=== PATIENT | male | born 1930 | race Two or more races ===

== ENCOUNTER 2019-05-23 04:25 | Inpatient (IN) | payer MEDICAID, MEDICARE ==
[~2019-05-23] VITALS: Ht 172.7 cm; Wt 60.3 kg
--- NOTE | 2019-05-23 04:50 | NUR ---
PT ANY FROM FOUR SEASONS C/C "NOSEBLEED OUT OF NOWHERE, WONT STOP" -GLF. -DIZZY AOX3-4. VSS. PT SOUTH KOREAN SPEAKING ONLY. PT ON MONITOR IN BED 4. NOSE CLIP IN PLACE. L NOSTRIL BLEEDING NOTED. NO R SIDED NOSTRIL BLEED. WILL CONTINUE TO MONITOR.
--- NOTE | 2019-05-23 05:02 | NUR ---
RHINO ROCKET IN L NOSTRIL
[2019-05-23] MEDS ORDERED: ZOLPIDEM TARTRATE 5 MG TABLET PO PRN (05:30)
[2019-05-23] MEDS ORDERED: Z GUARD REMEDY 2 OZ OINT TP PRN (05:30)
[2019-05-23] MEDS ORDERED: ONDANSETRON HCL/PF 4 MG/2 ML VIAL IVP PRN (05:30)
[2019-05-23] MEDS ORDERED: ACETAMINOPHEN 325 MG TABLET PO PRN (05:30)
[2019-05-23] MEDS ORDERED: HYDROCODONE/APAP 5/325MG 1 EACH TABLET PO PRN (05:30)
[2019-05-23] MEDS ORDERED: MAG HYDROX/AL HYDROX/SIMETH 30 ML UDC PO PRN (05:30)
--- NOTE | 2019-05-23 05:36 | NUR ---
FAMILY AT BEDSIDE.
--- NOTE | 2019-05-23 05:43 | NUR ---
BLOOD DRAWN AND GIVEN TO LAB
[2019-05-23 05:45] LABS: BASOPHILS % (AUTO) 0.4 % (0.0-2.0); EOSINOPHILS % (AUTO) 1.5 % (0.0-6.0); HEMATOCRIT 36 % (39-51); HEMOGLOBIN 11.7 g/dL (13.5-17.5); LYMPHOCYTES # (AUTO) 1.2 /CMM (0.8-4.8); LYMPHOCYTES % (AUTO) 15.7 % (20.0-44.0); MEAN CORPUSCULAR HGB CONC 33 g/dl (31.0-36.0); MEAN CORPUSCULAR VOLUME 101 fL (80-96); MONOCYTES # (AUTO) 0.2 /CMM (0.1-1.30); MONOCYTES % (AUTO) 2.9 % (2.0-12.0); NEUTROPHILS # (AUTO) 6.2 /CMM (1.8-8.9); NEUTROPHILS % (AUTO) 79.5 % (43.0-81.0); PLATELET COUNT (AUTO) 299 /CMM (150-450); RED BLOOD CELL COUNT(AUTO) 3.58 MIL/uL (4.5-6.0); WHITE BLOOD COUNT (AUTO) 7.8 K/uL (4.3-11.0)
--- NOTE | 2019-05-23 05:50 | NUR ---
REPORT GIVEN TO WALKER BALDERAS FOR MIRIAM
[2019-05-23 05:57] LABS: CARBON DIOXIDE 24 mmol/L (21-32); CHLORIDE 104 mmol/L (98-107); CREATININE 0.9 mg/dL (0.6-1.3); GLUCOSE 127 mg/dL (74-106); POTASSIUM 4.3 mmol/L (3.5-5.1); SODIUM SERUM 137 mmol/L (136-145); UREA NITROGEN, BLOOD 16 mg/dL (7-18)
[2019-05-23 06:40] VITALS: BP 110/67
--- NOTE | 2019-05-23 06:40 | NUR ---
RN MS ADMISSION RECEIVED PATIENT FROM ER VIA GURNEY, AWAKE ALERT AND ORIENTED X3, TOGOLESE SPEAKING DAUGHTER AT BEDSIDE, ABLE TO FOLLOW SIMPLE COMMANDS IN [place] AND MAKE NEEDS KNOWN, VITAL SIGNS 110/67,87,18,96%,97.0, URINAL OFFERED, BELONGINGS LIST DONE PATIENT HAS TWO DENTURES, PATIENT LEFT SAFE AND COMFORTABLE PROVIDED PERINEAL CARE, AND CHANGED, WILL ENDORSE TO NEXT SHIFT FOR CONTINUITY OF CARE.
--- NOTE | 2019-05-23 07:22 | NUR ---
TELE/RN OPENING NOTE THE PATIENT IS RECEIVED IN BED. JAMA[place] SPEAKING. ALERT AND ORIENTED X3. RHINO POCKET IS IN LEFT NOSTRIL. IN ROOM AIR AND DENIES SOB. RESPIRATION REGULAR AND UNLABORED. DENIES PAIN. THE PATIENT IN NO APPARENT DISTRESS. NO NOSEBLEED AT THIS TIME. EXTERNAL TELE BOX READING IS SR 84. LAC G 20 PATENT AND SALINE LOCKED. BED LOW AND LOCKED. SIDE RAILS UP X3. CALL LIGHT WITHIN REACH. WILL CONTINUE TO MONITOR.
[2019-05-23 08:00] VITALS: BP 136/76
[2019-05-23] MEDS ORDERED: ATOR10TA PO (08:08)
[2019-05-23] MEDS ORDERED: LEVO750T46 PO (08:08)
[2019-05-23] MEDS ORDERED: TAMS-12 PO (08:08)
[2019-05-23] MEDS ORDERED: SENN-168 PO (08:08)
[2019-05-23] MEDS ORDERED: CARV3.12 PO (08:08)
[2019-05-23] MEDS ORDERED: BUDE10.2 IH (08:08)
[2019-05-23] MEDS ORDERED: CLOP75TA15 PO (08:08)
[2019-05-23] MEDS ORDERED: POTA20TA83 PO (08:08)
[2019-05-23] MEDS ORDERED: POMA3CAP PO (08:08)
[2019-05-23] MEDS ORDERED: ASPI-605 PO (08:08)
[2019-05-23] MEDS: IV NS 0.9% 1,000 ML IV PRN (08:28)
--- NOTE | 2019-05-23 11:15 | NUR ---
TELE/RN NOTE PER SALES MGR JAIDA RHINO POCKET WILL STAY IN PLACE TODAY.
--- NOTE | 2019-05-23 14:20 | NUR ---
MS/RN NOTE THE PATIENT NOTED WITH SCANT AMOUNT OF NOSE BLEED THAT LASTED FOR ABOUT 1 MIN. ORAL CAVITY WITH NO BLOOD. RESPIRATION REGULAR AND UNLABORED. DENIES SOB. DENIES PAIN. WILL CONTINUE TO MONITOR.
[2019-05-23 16:00] VITALS: BP 116/64
[2019-05-23] MEDS: CARVEDILOL 3.125 MG TABLET PO SCH (16:49)
--- NOTE | 2019-05-23 16:49 | NUR ---
MS/RN NOTE THE PATIENT COMPLAINED OF HEADACHE 01/09. TYLENOL 650 MG PO GIVEN. WILL CONTINUE TO MONITOR.
--- NOTE | 2019-05-23 17:15 | NUR ---
MS/RN NOTE THE PATIENT VERBALIZED TYLENOL BEING EFFECTIVE FOR HEADACHE AND RATED PAIN 0/10. WILL CONTINUE TO MONITOR.
--- NOTE | 2019-05-23 18:16 | NUR ---
MS/RN NOTE THE PATIENT IS ALERT AND ORIENTED X3. IN ROOM AIR AND SATURATION IS AT 96%. DENIES SOB. RESPIRATION REGULAR AND UNLABORED. RHINO POCKET IN PLACE. NO NOSEBLEED AT THIS TIME. ORAL CAVITY CLEAR. PATIENT REMAINS ON CLEAR LIQUID DIET AND TOLERATES DIET WELL. LAC G 20 PATENT AND NORMAL SALINE INFUSING AT 75ML/HR AND NO S/S INFILTRATION NOTED. BED LOW AND LOCKED. SIDE RAILS UP X3. CALL LIGHT WITHIN REACH. WILL ENDORSE TO SUEDING MACHINE TENDER.
--- NOTE | 2019-05-23 19:10 | NUR ---
RN MS OPENING NOTES RECEIVED PATIENT IN BED AWAKE ,ALERT AND ORIENTED X3, ARMENIAN SPEAKING, ABLE TO MAKE NEEDS KNOWN COMMUNICATE IN SIMPLE SAMI TERMS, RESPIRATIONS EVEN AND UNLABORED WITH EQUAL RISE AND FALL OF CHEST, LEFT NOSTRIL RHINO POCKET IN PLACE, NO BLEEDING PRESENT AT THIS TIME, IV SITE TO LEFT AC #20G INTACT AND PATENT, NO REDNESS, NO INFILTRATION PRESENT, IVF RUNNING ORDERED, STATES HE HAS HEADACHE HOWEVER EXPLAINED TO PATIENT HE RECENTLY RECEIVED PAIN MEDICATION. WILL CONTINUE TO MONITOR FOR EFFECTIVENESS, NONPHARMACOLOGICAL INTERVENTIONS RENDERED, DIMMED LIGHTS, DISTRACTION IN PLACE-TV. FLUIDS OFFERED, ORIENTED TO CALL LIGHT AND KEPT WITHIN REACH, SAFETY PRECAUTIONS IN PLACE, LOW BED AND LOCKED, BED ALARM IN PLACE, SITTER AT BEDSIDE, ALL NEEDS ATTENDED AT THIS TIME, WILL CONTINUE TO MONITOR AND ATTEND TO NEEDS, URINAL WITHIN REACH.
[2019-05-23 20:00] VITALS: BP 111/52
--- NOTE | 2019-05-23 21:29 | NUR ---
RN MS NOTES MADE PATIENT AWARE OF MEDICATION SCHEDULED, HOWEVER PATIENT REFUSED AT THIS TIME STATING " NO, I WANT TO SLEEP", EXPLAINED BENEFITS OF MEDICATION, STILL REFUSED , WILL ATTEMPT AGAIN.
[2019-05-23] MEDS: SENNOSIDES 8.6 MG TABLET PO SCH ×2 (22:00→22:41)
[2019-05-23] MEDS: ATORVASTATIN 10 MG TABLET PO SCH ×2 (22:00→22:41)
--- NOTE | 2019-05-23 22:47 | NUR ---
RN MS NOTES PATIENT COMPLAINT OF PAIN HEADACHE REQUESTING FOR PAIN MEDICATION , NORCO OFFERED WITH [facility] [employer] TAX SPECIALIST AGREED, VS WNL, NORCO ORDERED PRN GIVEN WILL CONTINUE TO MONITOR.
--- NOTE | 2019-05-23 22:48 | NUR ---
RN MS NOTES ASKED PATIENT IF WANTED TO TAKE MEDICATION SCHEDULED WITH [facility] STAFF JAIL KEEPER , AGREED, PATIENT ASKING FOR TYLENOL FOR HEADACHE WITH JAIL KEEPER MADE AWARE ITS EVERY 6 HOURS, HOWEVER PATIENT DOESNT SEEM TO UNDERSTAND TIMING, OFFERED NORCO FOR PAIN AND EXPLAINED PATIENT AGREED, AT THIS TIME PATIENT ALSO AGREED TO TAKE SCHEDULED MEDICATIONS.
[2019-05-24] MEDS: IV NS 0.9% 1,000 ML IV PRN ×2 (00:26→21:14)
--- NOTE | 2019-05-24 06:41 | NUR ---
RN MS CLOSING NOTES PATIENT IN BED AWAKE ,ALERT AND ORIENTED X3, CROATIAN SPEAKING, ABLE TO MAKE NEEDS KNOWN COMMUNICATES IN SIMPLE ETHIOPIAN TERMS, RESPIRATIONS EVEN AND UNLABORED WITH EQUAL RISE AND FALL OF CHEST, LEFT NOSTRIL RHINO POCKET IN PLACE, NO BLEEDING PRESENT AT THIS TIME, HAD X1 EPISODE OF SCANT AMOUNT OF BLEEDING, REMINDED PATIENT TO NOT TOUCH,PICK AFFECTED SITE, ICE PROVIDED , NO NO BLEEDING PRESENT AFTER ICE APPLICATION, BED BATH GIVEN , IV SITE TO LEFT AC #20G INTACT AND PATENT, NO REDNESS, NO INFILTRATION PRESENT, IVF RUNNING ORDERED, DENIES ANY PAIN OR DISCOMFORT AT THIS TIME. FLUIDS OFFERED, CALL LIGHT KEPT WITHIN REACH, SAFETY PRECAUTIONS IN PLACE, LOW BED AND LOCKED, BED ALARM IN PLACE, SITTER AT BEDSIDE, ALL NEEDS ATTENDED AT THIS TIME, WILL CONTINUE TO MONITOR, ALL ATTEND TO NEEDS, URINAL WITHIN REACH, REMAINS COMFORTABLE, WILL ENDORSE TO NEXT SHIFT.
[2019-05-24 08:00] VITALS: BP 110/74
[2019-05-24] MEDS: POTASSIUM CHLORIDE 20 MEQ TAB.PRT.SR PO SCH (08:24)
[2019-05-24] MEDS: TAMSULOSIN 0.4 MG CAP.SR.24H PO SCH (08:24)
[2019-05-24] MEDS: FLUTICASONE/VILANTEROL 1 EACH BLST.W.DEV IH SCH (08:25)
[2019-05-24] MEDS: CARVEDILOL 3.125 MG TABLET PO SCH ×2 (08:32→17:00)
[2019-05-24] MEDS ORDERED: POMALIDOMIDE 3 MG PO SCH (09:00)
--- NOTE | 2019-05-24 09:01 | NUR ---
RN OPENING NOTES RECEIVED PT. PT STABLE AND RESTING IN BED. NO S/S OF RESP DISTRESS/SOB. NO C/O PAIN AT THIS TIME. SCANT AMOUNT OF ACTIVE BLEEDING FROM LEFT NOSTRIL NOTED. MD TO REMOVE BLOOD CONTAINMENT DEVICE THAT IS PLACED IN THE LEFT NOSTRIL AT THIS TIME. SAFETY MEASURES IN PLACE, CALL LIGHT IN REACH. WILL CONT TO MONITOR.
[2019-05-24 11:59] LABS: BASOPHILS # (AUTO) 0.1 /CMM (0.0-0.2); BASOPHILS % (AUTO) 1.4 % (0.0-2.0); EOSINOPHILS % (AUTO) 0.8 % (0.0-6.0); HEMATOCRIT 28 % (39-51); LYMPHOCYTES # (AUTO) 0.8 /CMM (0.8-4.8); LYMPHOCYTES % (AUTO) 15.2 % (20.0-44.0); MEAN CORPUSCULAR HGB CONC 32 g/dl (31.0-36.0); MEAN CORPUSCULAR VOLUME 102 fL (80-96); MONOCYTES # (AUTO) 0.3 /CMM (0.1-1.30); MONOCYTES % (AUTO) 5.8 % (2.0-12.0); NEUTROPHILS # (AUTO) 4.2 /CMM (1.8-8.9); NEUTROPHILS % (AUTO) 76.8 % (43.0-81.0); PLATELET COUNT (AUTO) 286 /CMM (150-450); RED BLOOD CELL COUNT(AUTO) 2.76 MIL/uL (4.5-6.0); WHITE BLOOD COUNT (AUTO) 5.5 K/uL (4.3-11.0)
[2019-05-24 12:12] LABS: CALCIUM, SERUM 7.4 mg/dL (8.5-10.1); CARBON DIOXIDE 25 mmol/L (21-32); CHLORIDE 106 mmol/L (98-107); CREATININE 0.8 mg/dL (0.6-1.3); GLUCOSE 87 mg/dL (74-106); MAGNESIUM 1.5 mg/dL (1.8-2.4); PHOSPHORUS 2.2 mg/dL (2.5-4.9); POTASSIUM 3.7 mmol/L (3.5-5.1); SODIUM SERUM 139 mmol/L (136-145); UREA NITROGEN, BLOOD 13 mg/dL (7-18)
[2019-05-24 12:14] LABS: CHOLESTEROL 100 mg/dL (<200); HDL CHOLESTEROL 23 mg/dL (40-60); LDL 59 mg/dL (0-99); TRIGLYCERIDES 104 mg/dL (30-150)
[2019-05-24] MEDS ORDERED: ACYC400T PO (15:25)
[2019-05-24] MEDS ORDERED: ISOS30TA6 PO (15:25)
[2019-05-24 16:07] VITALS: BP 102/48
[2019-05-24] MEDS: ACYCLOVIR 200 MG CAPSULE PO SCH (16:44)
--- NOTE | 2019-05-24 18:55 | NUR ---
closing note PT IN BED RESTING. VSS. ALL PT NEEDS ANTICIPATED AND MET. SAFETY MEASURES IN PLACE, CALL LIGHT IN REACH. WILL ENDORSE TO CLERICAL AIDE FOR MIRIAM.
--- NOTE | 2019-05-24 19:15 | NUR ---
MS RN NOTES RECEIVED PT IN BED AWAKE AND ABLE TO MAKE NEEDS KNOWN. PT A/O X3 AND SALV[place]OREAN SPEAKING. RESPIRATIONS EVEN AND UNLABORED WITH NO S/S OF ACUTE DISTRESS OR SOB NOTED. PT DENIES PAIN AT THIS TIME. PT WITH LAC#20G PATENT AND INTACT AND SL. SAFETY MEASURES IN PLACE WITH BED IN LOWEST LOCKED POSITION WITH SIDE RAILS UP X2. CALL LIGHT WITHIN REACH. WILL CONTINUE TO MONITOR.
[2019-05-24] MEDS: ISOSORBIDE DINITRATE (20MG) 20 MG TABLET PO SCH (22:00)
[2019-05-24] MEDS: SENNOSIDES 8.6 MG TABLET PO SCH (22:48)
[2019-05-24] MEDS: ATORVASTATIN 10 MG TABLET PO SCH (22:48)
[2019-05-24 22:49] VITALS: BP 107/69
[2019-05-24 23:52] LABS: BASOPHILS # (AUTO) 0.1 /CMM (0.0-0.2); BASOPHILS % (AUTO) 1.5 % (0.0-2.0); EOSINOPHILS % (AUTO) 0.8 % (0.0-6.0); HEMATOCRIT 26 % (39-51); HEMOGLOBIN 8.4 g/dL (13.5-17.5); LYMPHOCYTES # (AUTO) 0.9 /CMM (0.8-4.8); LYMPHOCYTES % (AUTO) 13.4 % (20.0-44.0); MEAN CORPUSCULAR HGB CONC 33 g/dl (31.0-36.0); MEAN CORPUSCULAR VOLUME 101 fL (80-96); MONOCYTES # (AUTO) 0.4 /CMM (0.1-1.30); MONOCYTES % (AUTO) 6.7 % (2.0-12.0); NEUTROPHILS # (AUTO) 4.9 /CMM (1.8-8.9); NEUTROPHILS % (AUTO) 77.6 % (43.0-81.0); PLATELET COUNT (AUTO) 263 /CMM (150-450); RED BLOOD CELL COUNT(AUTO) 2.55 MIL/uL (4.5-6.0); WHITE BLOOD COUNT (AUTO) 6.4 K/uL (4.3-11.0)
--- NOTE | 2019-05-25 07:45 | NUR ---
MS RN NOTES OPENING Received patient in bed, on room air. No sob noted, patient a/o x3, mainly palauan speaking only. Patient refuses his IV fluids at this time. no new bleeding noted on his nose. bed at the lowest setting, call light within reach.
--- NOTE | 2019-05-25 07:50 | NUR ---
MS RN NOTES PT IN BED SLEEPING BUT EASILY AWOKEN VERBALLY OR BY TOUCH. PT A/O X3 AND BAHAMIAN SPEAKING AND ABLE TO MAKE NEEDS KNOWN. RESPIRATIONS EVEN AND UNLABORED WITH NO S/S OF ACUTE DISTRESS OR SOB NOTED THROUGHOUT SHIFT. PT DENIES PAIN AT THIS TIME. PT WITH LAC#20G PATENT AND INTACT AND SL. PT KEPT CLEAN, DRY, AND COMFORTABLE. SAFETY MEASURES IN PLACE WITH BED IN LOWEST LOCKED POSITION WITH SIDE RAILS UP X2. CALL LIGHT WITHIN REACH. WILL ENDORSE TO ONCOMING NURSE FOR MIRIAM.
[2019-05-25 08:00] VITALS: BP 102/48
[2019-05-25] MEDS: CARVEDILOL 3.125 MG TABLET PO SCH ×2 (09:00→16:49)
[2019-05-25] MEDS: POTASSIUM CHLORIDE 20 MEQ TAB.PRT.SR PO SCH (09:07)
[2019-05-25] MEDS: TAMSULOSIN 0.4 MG CAP.SR.24H PO SCH (09:07)
[2019-05-25] MEDS: ACYCLOVIR 200 MG CAPSULE PO SCH ×2 (09:07→16:49)
[2019-05-25] MEDS: FLUTICASONE/VILANTEROL 1 EACH BLST.W.DEV IH SCH (09:10)
--- NOTE | 2019-05-25 14:06 | NUR ---
RN MS NOTES Patient refused blood draw on 3 separate occasions today. Explained to the patient that it is necessary for us to keep trach of his status. Patient still refused and as he stated, "wants to rest today". Patient stated that he wants it tomorrow instead.
--- NOTE | 2019-05-25 15:40 | NUR ---
RN MS NOTES Patient has been refusing to put his IV fluids on all shift. patient stated that he likes his blood pressure the way it is. Explained to the patient that it is for hydration purposes as well. Patient still refuses. Will ask again at a later time.
[2019-05-25 16:00] VITALS: BP 105/43
--- NOTE | 2019-05-25 18:39 | NUR ---
RN MS CLOSING NOTES Patient remains on room air, no sob noted. Patient remains a/o x3, mostly Malian speaking. RhinoRocket was left unbothered by patient, but it does show old blood outside. Patient remains on Clear Liquid diet per attending doctor. Patient's IV site at left ac #20 remains patent. Patient refused IV fluid today, explained to him the benefits, he stated that he rather not put it on. Blood pressure a little on the low side, held blood pressure medications. Bed at the lowest setting, call light within reach. Will give report to NOC RN for MIRIAM bedside.
--- NOTE | 2019-05-25 19:30 | NUR ---
RN NOTES RECEIVED PT.AWAKE ON BED, DAUGHTER AT BEDSIDE, A/OX3, [place] ISLANDER SPEAKING, RHINOROCKET IN THE LEFT NOSTRIL IN PLACE, NO BLEEDING NOTED, NO SOB, DENIES PAIN, CALL LIGHT WITHIN REACH, [id number], CONTINUE TO MONITOR
[2019-05-25 20:27] VITALS: BP 101/47
[2019-05-25] MEDS: ATORVASTATIN 10 MG TABLET PO SCH (21:42)
[2019-05-25] MEDS: SENNOSIDES 8.6 MG TABLET PO SCH (21:42)
[2019-05-25] MEDS: ISOSORBIDE DINITRATE (20MG) 20 MG TABLET PO SCH (21:46)
--- NOTE | 2019-05-26 06:21 | NUR ---
RN NOTES SLEEPING BUT AROUSABLE, NO PAIN NOTED, NO SOB, MORNING CARE RENDERED, CALL LIGHT WITHIN REACH, SIDERAILUSPX2, PT. NEEDS ATTENDED
[2019-05-26 08:00] VITALS: BP 112/57
--- NOTE | 2019-05-26 08:20 | NUR ---
M/S RN NOTES PATIENT AWAKE IN BED, ALERT AND ORIENTED X3, FIJIAN SPEAKING. NO RESPIRATORY DISTRESS NOTED, NO C/O PAIN AT THIS TIME. SKIN WARM TO TOUCH. IV SL ON THE LAC, INTACT AND PATENT. PATIENT REFUSES IV FLUID, MD AWARE. RHINO ROCKET ON THE LEFT NOSTRIL STILL INTACT, NO SIGNS OF BLEEDING. PATIENT'S NEEDS ATTENDED, BED ON LOWEST LOCKED POSITION, CALL LIGHT WITHIN REACH. WILL CONTINUE TO MONITOR.
[2019-05-26] MEDS: ACYCLOVIR 200 MG CAPSULE PO SCH ×2 (09:00→17:00)
[2019-05-26] MEDS: POTASSIUM CHLORIDE 20 MEQ TAB.PRT.SR PO SCH (09:00)
[2019-05-26] MEDS: CARVEDILOL 3.125 MG TABLET PO SCH ×2 (09:00→17:00)
[2019-05-26] MEDS: TAMSULOSIN 0.4 MG CAP.SR.24H PO SCH (09:00)
[2019-05-26] MEDS: FLUTICASONE/VILANTEROL 1 EACH BLST.W.DEV IH SCH (09:47)
[2019-05-26 14:27] LABS: BASOPHILS # (AUTO) 0.2 /CMM (0.0-0.2); BASOPHILS % (AUTO) 2.9 % (0.0-2.0); EOSINOPHILS % (AUTO) 1.2 % (0.0-6.0); HEMATOCRIT 25 % (39-51); HEMOGLOBIN 8.1 g/dL (13.5-17.5); LYMPHOCYTES # (AUTO) 0.6 /CMM (0.8-4.8); LYMPHOCYTES % (AUTO) 11.2 % (20.0-44.0); MEAN CORPUSCULAR HGB CONC 33 g/dl (31.0-36.0); MEAN CORPUSCULAR VOLUME 100 fL (80-96); MONOCYTES # (AUTO) 0.4 /CMM (0.1-1.30); MONOCYTES % (AUTO) 7.6 % (2.0-12.0); NEUTROPHILS # (AUTO) 4.2 /CMM (1.8-8.9); NEUTROPHILS % (AUTO) 77.1 % (43.0-81.0); PLATELET COUNT (AUTO) 316 /CMM (150-450); RED BLOOD CELL COUNT(AUTO) 2.47 MIL/uL (4.5-6.0); WHITE BLOOD COUNT (AUTO) 5.4 K/uL (4.3-11.0)
[2019-05-26 14:38] LABS: CALCIUM, SERUM 7.4 mg/dL (8.5-10.1); CARBON DIOXIDE 22 mmol/L (21-32); CHLORIDE 106 mmol/L (98-107); CREATININE 0.8 mg/dL (0.6-1.3); GLUCOSE 102 mg/dL (74-106); MAGNESIUM 1.7 mg/dL (1.8-2.4); PHOSPHORUS 2.3 mg/dL (2.5-4.9); POTASSIUM 3.8 mmol/L (3.5-5.1); SODIUM SERUM 137 mmol/L (136-145); UREA NITROGEN, BLOOD 7 mg/dL (7-18)
[2019-05-26 16:00] VITALS: BP 102/45
--- NOTE | 2019-05-26 16:34 | NUR ---
M/S RN NOTES REPORT GIVEN TO WALKER SPENCE FROM [facility].
--- NOTE | 2019-05-26 17:40 | NUR ---
M/S RN NOTES PATIENT DISCHARGED TODAY IN STABLE CONDITION. PATIENT BEING TRANSFERRED TO [facility]. NO RESPIRATORY DISTRESS, NO C/O PAIN. PATIENT ALERT AND ORIENTED X2, URUGUAYAN SPEAKING. CALLED DAUGHTER FOR DISCHARGE INSTRUCTIONS, VERBALIZED UNDERSTANDING. PATIENT'S BELONGINGS COUNTED AND SIGNED. PATIENT CONFUSED AND REFUSED PHOTOS FOR SKIN ASSESSMENT. PATIENT LEFT WITH IV ON THE LAC #18G INTACT AND PATENT. PATIENT LEFT WITH PARAMEDICS VIA GURNEY.
--- NOTE | 2019-05-26 19:40 | NUR ---
MS RN NOTES NOT IN THE ROOM.OUT TO [place] ALEVISM FOR EENT EVAL DUE TO EPISTAXIS.
[2019-05-26] MEDS: SENNOSIDES 8.6 MG TABLET PO SCH (22:00)
[2019-05-26] MEDS: ATORVASTATIN 10 MG TABLET PO SCH (22:00)
[2019-05-26] MEDS: ISOSORBIDE DINITRATE (20MG) 20 MG TABLET PO SCH (22:00)
--- NOTE | 2019-05-27 06:11 | NUR ---
MS RN NOTES STILL OUT TO JHONY SPENCE FOR EENT EVALUATION DUE EPISTAXIS.BED HOLD 325-2.WILL ENDORSE TO DAY NURSE FOR MIRIAM.
== END 2019-05-27 10:16 | disposition short-term general hospital (02) | DRG 115 ==
LOC: ER 04:26 → TELE 05:36 → MED 08:41
PROVIDERS: ADMIT Nurse Practitioner Acute Care; ATTEND Registered Nurse
PROC: 2Y41X5Z Packing of Nasal Region using Packing Material (ICD-10-PCS; principal; 2019-05-23)
DX: R04.0 Epistaxis (principal); D68.32 Hemorrhagic disorder due to extrinsic circulating anticoagulants; D68.59 Other primary thrombophilia; D63.8 Anemia in other chronic diseases classified elsewhere; J44.9 Chronic obstructive pulmonary disease, unspecified; R73.9 Hyperglycemia, unspecified; F03.90 Unspecified dementia, unspecified severity, without behavioral disturbance, psychotic disturbance, mood disturbance, and anxiety; I10 Essential (primary) hypertension; E78.5 Hyperlipidemia, unspecified; I25.2 Old myocardial infarction; N40.0 Benign prostatic hyperplasia without lower urinary tract symptoms; Z79.82 Long term (current) use of aspirin; T45.525A Adverse effect of antithrombotic drugs, initial encounter; Y92.129 Unspecified place in nursing home as the place of occurrence of the external cause
CPT/HCPCS: 36415; 80048-TC; 80061-TC; 82962-TC; 83735-TC; 84100-TC; 85025-TC; 85610-TC; 85730-TC; 86850-TC; 87081-TC; A6402; A6403; G0378; J7030